=== PATIENT | male | born 1980 | race African-American/Black ===

== ENCOUNTER 2023-08-16 23:18 | Emergency (ER) | payer OTHER ==
[2023-08-16 23:21] VITALS: BP 189/106; RESP 18; TEMP 99.1
[2023-08-17] MEDS ORDERED: ALBUTEROL SO4 0.083% IH SOL 2.5 MG/3 ML VIAL.NEB. NEB ONE (00:09)
[2023-08-17] MEDS ORDERED: AMOXICILLIN ORAL SUSPENSION - 250 MG/5 ML ONE (00:10)
[2023-08-17] MEDS: ALBUTEROL SO4 0.083% IH SOL 2.5 MG/3 ML VIAL.NEB. NEB ONE (00:14)
[2023-08-17 00:23] VITALS: PULSE 100; BMI 32.5
[2023-08-17] MEDS ORDERED: ALBUTEROL SO4 HFA INHALER IH ONE (00:33)
[2023-08-17] MEDS: ALBUTEROL SO4 HFA INHALER IH ONE (00:36)
== END 2023-08-17 00:41 | disposition home or self-care (01) ==
LOC: FER 23:18
PROC: 3E0F7GC Introduction of Other Therapeutic Substance into Respiratory Tract, Via Natural or Artificial Opening (ICD-10-PCS; principal; 2023-08-16)
PROC: 3E0F7GC Introduction of Other Therapeutic Substance into Respiratory Tract, Via Natural or Artificial Opening (ICD-10-PCS; 2023-08-17)
DX: R05.9 Cough, unspecified (principal); R06.02 Shortness of breath; R09.81 Nasal congestion; Z20.822 Contact with and (suspected) exposure to COVID-19
CPT/HCPCS: 0241U-QW; 99284-25

== ENCOUNTER 2023-12-28 09:52 | Emergency (ER) | payer OTHER ==
[2023-12-28 10:37] VITALS: BP 159/91; PULSE 112; RESP 20; TEMP 98.7; BMI 31.5
[2023-12-28] MEDS ORDERED: IBUPROFEN 600 MG TABLET (FP) PO ONE (11:55)
[2023-12-28] MEDS: IBUPROFEN 600 MG TABLET (FP) PO ONE (12:26)
== END 2023-12-28 12:00 | disposition home or self-care (01) ==
LOC: FER 09:52
DX: S00.83XA Contusion of other part of head, initial encounter (principal); R68.84 Jaw pain; R42 Dizziness and giddiness; H93.13 Tinnitus, bilateral; Y04.8XXA Assault by other bodily force, initial encounter
CPT/HCPCS: 70450-TC; 70486-TC; 99284-25